=== PATIENT | female | born 1990 | race Caucasian/White ===

== ENCOUNTER 2016-04-01 07:29 | Emergency (ER) | payer MEDICAID ==
[~2016-04-01] VITALS: Ht 162.6 cm; Wt 58.0 kg
[~2016-04-01 07:29] MED LIST: CEPH-460 PO; CEPH500 PO; CLON.1 PO; CYCL-36 PO; PREN0.01 PO; SERT-132 PO
[2016-04-01 07:31] VITALS: BP 132/84; PULSE 90; RESP 16; TEMP 97.9; O2SAT 95
[2016-04-01] MEDS ORDERED: SERO100T PO (07:45)
--- NOTE | 2016-04-01 07:55 | PD ---
HPI Chief Complaint: Evaluation Assistant Problem/Complaint Time Seen by Provider: 07:51 Travel History International Travel<30 days: No Contact w/Intl Traveler<30days: No Traveled to known affect area: No History of Present Illness HPI 26-year-old female with history of miscarriage one month ago, presents to the ER with vaginal bleeding and passing blood clots for 3-4 days. She states that it is abnormal for her to do this and she does not think this is her regular period. She has been having some pelvic cramping pains. She denies any other issues. Otherwise, states that she has to go to rehabilitation for substance use, has had some withdrawal symptoms. Modifying Factors: None Associated Signs & Symptoms: Pelvic cramping, vaginal bleeding Risk Factors: None PFSH Past Medical History Autoimmune Disease: No Blood Disorders: No Bipolar Disorder: Yes Anxiety: Yes Depression: Yes Cancer: No Cardiovascular Problems: No Diabetes: No Diminished Hearing: No Gastrointestinal Disorders: Yes Genitourinary: No Musculoskeletal: No Neurologic: No Psychiatric: No Respiratory: No Immunizations Current: No Seizures: No Sickle Cell Disease: No Thyroid Disease: No Ulcer: No ?: Unknown LMP: unknown : 1 Para: 1 Past Surgical History Abdominal Surgery: Yes (1998 - APPENDECTOMY) Appendectomy: Yes Cardiac Surgery: No Ear Surgery: No Endocrine Surgery: No Eye Surgery: No Genitourinary Surgery: No Gynecologic Surgery: No Neurologic Surgery: No Oral Surgery: No Thoracic Surgery: No Other Surgery: No Social History Alcohol Use: No Tobacco Use: Yes (12ppd) Substance Use: Yes (Reports hx of cannabinoids, Dilaudid. Reports relapsed a few days ago.) Allergies-Medications (Allergen,Severity, Reaction): Coded Allergies: No Known Allergies (Verified , 04/01/16) Reported Meds & Prescriptions Reported Meds & Active Scripts Active Reported Seroquel (Quetiapine Fumarate) 100 Mg Tab 100 Mg PO BID Review of Systems Except as stated in HPI: all other systems reviewed are Neg Physical Exam Narrative GENERAL: Well-nourished, well-developed young white female patient in no acute distress. SKIN: Warm and dry. HEAD: Normocephalic. EYES: No scleral icterus. No injection or drainage. NECK: Supple, trachea midline. CARDIOVASCULAR: Regular rate and rhythm without murmurs, gallops, or rubs. RESPIRATORY: Breath sounds equal bilaterally. No accessory muscle use. GASTROINTESTINAL: Abdomen soft, non-tender, nondistended. Benign. GENITOURINARY: Normal external genitalia without lesions or erythema. Vaginal vault without blood or drainage. Cervical os was closed without drainage. No cervical motion tenderness. Uterus nontender and nonenlarged. Bilateral adnexa nontender without masses. MUSCULOSKELETAL: No cyanosis, or edema. BACK: Nontender without obvious deformity. No CVA tenderness. Data Data Last Documented VS Vital Signs Date Time Temp Pulse Resp B/P Pulse Ox O2 Delivery O2 Flow Rate FiO2 04/01/16 07:31 97.9 90 16 132/84 95 Room Air Orders Beta Hcg (Quant/Titer) (04/01/16 07:51) Complete Blood Count With Diff (04/01/16 07:51) Basic Metabolic Panel (Bmp) (04/01/16 07:51) Us Pelvis Comp W Transvaginal (04/01/16 ) Labs Laboratory Tests Test 04/01/16 08:00 White Blood Count 5.5 TH/MM3 Red Blood Count 3.68 MIL/MM3 Hemoglobin 11.2 GM/DL Hematocrit 33.4 % Mean Corpuscular Volume 90.6 FL Mean Corpuscular Hemoglobin 30.4 PG Mean Corpuscular Hemoglobin 33.5 % Concent Red Cell Distribution Width 14.2 % Platelet Count 194 TH/MM3 Mean Platelet Volume 8.9 FL Neutrophils (%) (Auto) 64.7 % Lymphocytes (%) (Auto) 25.2 % Monocytes (%) (Auto) 6.2 % Eosinophils (%) (Auto) 3.5 % Basophils (%) (Auto) 0.4 % Neutrophils # (Auto) 3.5 TH/MM3 Lymphocytes # (Auto) 1.4 TH/MM3 Monocytes # (Auto) 0.3 TH/MM3 Eosinophils # (Auto) 0.2 TH/MM3 Basophils # (Auto) 0.0 TH/MM3 CBC Comment DIFF FINAL Differential Comment Sodium Level 142 MEQ/L Potassium Level 3.7 MEQ/L Chloride Level 107 MEQ/L Carbon Dioxide Level 28.2 MEQ/L Anion Gap 7 MEQ/L Blood Urea Nitrogen 9 MG/DL Creatinine 0.83 MG/DL Estimat Glomerular Filtration 83 ML/MIN Rate Random Glucose 102 MG/DL Calcium Level 8.4 MG/DL Human Chorionic Gonadotropin, 2 MIU/ML Quant MDM Medical Decision Making Medical Screen Exam Complete: Yes Emergency Medical Condition: Yes Medical Record Reviewed: Yes Interpretation(s) Laboratory Tests Test 04/01/16 08:00 Red Blood Count 3.68 MIL/MM3 (4.00-5.30) Hemoglobin 11.2 GM/DL (11.6-15.3) Hematocrit 33.4 % (35.0-46.0) Estimat Glomerular Filtration 83 ML/MIN (>89) Rate Calcium Level 8.4 MG/DL (8.5-10.1) Last 24 hours Impressions Pelvis Ultrasound 04/01/16 0000 Signed Impressions: Service Date/Time: Friday, April 01, 2016 08:22 - CONCLUSION: Slitlike fluid in the endometrial cavity. Uterus otherwise negative. Septated or cyst within a cyst 2 cm right ovary. Complex fluid in the cul-de-sac. Tino Gómez MD Differential Diagnosis Pelvic cramping pains, vaginal bleedingdysmenorrhea versus retained products of Narrative Course HCG is negative. Pelvic exam did not reveal any signs of acute abnormalities and no significant bleeding at this time. Her ultrasound shows no signs of retained products of . At this point, my plan would be to release her with follow-up to [facility]. Return for any new issues as needed. The plan has been discussed with her and she states understanding. Diagnosis Primary Impression: DYSMENORRHEA, UNSPECIFIED Med/Other Pt SpecificInfo: Prescription(s) given Scripts Ibuprofen (Motrin Ib)200 Mg Tfn009 Mg PO Q6H PRN (PAIN SCALE 1 TO 10) #21 TAB Ref 0 Prov:Tomasz Ortiz MD 04/01/16 Disposition: 01 DISCHARGE HOME Condition: Stable Tomasz Ortiz MD Apr 01, 2016 07:55
[2016-04-01 08:29] LABS: AUTOMATED NEUTROPHIL # 3.5 TH/MM3 (1.8-7.7); BASOPHIL % 0.4 % (0.0-2.0); EOSINOPHIL # 0.2 TH/MM3 (0-0.4); EOSINOPHIL % 3.5 % (0.0-4.0); HEMATOCRIT 33.4 % (35.0-46.0); HEMO FLAGS DIFF FINAL; LYMPH % 25.2 % (9.0-44.0); LYMPHOCYTE # 1.4 TH/MM3 (1.0-4.8); MEAN CELL VOLUME 90.6 FL (80.0-100.0); MEAN CORPUSCULAR HEMOGLOBIN 30.4 PG (27.0-34.0); MEAN CORPUSCULAR HGB CONC 33.5 % (32.0-36.0); MONO % 6.2 % (0.0-8.0); NEUT % 64.7 % (16.0-70.0); PLATELET COUNT 194 TH/MM3 (150-450); RED BLOOD COUNT 3.68 MIL/MM3 (4.00-5.30); RED CELL DISTRIBUTION WIDTH 14.2 % (11.6-17.2); WHITE BLOOD COUNT 5.5 TH/MM3 (4.0-11.0)
[2016-04-01 08:47] LABS: BICARBONATE 28.2 MEQ/L (21.0-32.0); POTASSIUM 3.7 MEQ/L (3.5-5.1)
--- NOTE | 2016-04-01 10:03 | RADRPT ---
EXAM DATE/TIME: 04/01/2016 08:22 [facility] COMPARISON: US PELVIS ([facility] PREG/ECTOPIC), November 07, 2015, 9:34. INDICATIONS : Pelvic pain and vaginal bleeding following miscarriage last month. MEDICAL HISTORY : Bipolar disorder. Miscarriage 02/2016 (24 weeks). Substance use. SURGICAL HISTORY : Appendectomy. ENCOUNTER: Subsequent ACUITY: 2 weeks PAIN SCORE: 4/10 LOCATION: Right pelvis MEASUREMENTS: UTERUS: 8.1 x 3.4 x 5.9 cm ENDOMETRIAL STRIPE: 4 mm RIGHT OVARY: 3.6 x 2.0 x 1.9 cm LEFT OVARY: 3.1 x 1.3 x 2.3 cm FINDINGS: UTERUS: The myometrium has homogeneous echotexture without mass. Slitlike fluid in the endometrial cavity RIGHT OVARY: There is a septated or cyst within a cyst of the ovary measuring maximally up to 2 cm in size LEFT OVARY: Ovary contains no mass or significant cystic lesion. MISCELLANEOUS: Complex fluid in the cul-de-sac. CONCLUSION: Slitlike fluid in the endometrial cavity. Uterus otherwise negative. Septated or cyst within a cyst 2 cm right ovary. Complex fluid in the cul-de-sac. Tino Gómez MD on April 01, 2016 at 9:59 Board Certified Radiologist. This report was verified electronically.
[2016-04-01] MEDS ORDERED: MOTR200T4 PO (10:33)
[2016-04-01 10:43] VITALS: BP 148/79
== END 2016-04-01 11:02 | disposition home or self-care (01) ==
LOC: NEPC 07:29
DX: N94.6 Dysmenorrhea, unspecified (principal); F17.210 Nicotine dependence, cigarettes, uncomplicated; F12.90 Cannabis use, unspecified, uncomplicated; F11.90 Opioid use, unspecified, uncomplicated
CPT/HCPCS: 76830; 76856; 80048; 84702; 85025

== ENCOUNTER 2017-07-05 16:24 | Observation (INO) | payer MEDICAID, OTHER ==
[2017-07-05] VITALS (12 sets, daily range): BP systolic 106–124; BP diastolic 52–74; PULSE 73–84; RESP 18
[~2017-07-05] VITALS: Ht 162.6 cm; Wt 77.0 kg
[~2017-07-05 16:24] MED LIST changes: -CEPH-460 PO; -CEPH500 PO; -CLON.1 PO; -CYCL-36 PO; +MOTR200T4 PO; -PREN0.01 PO; +SERO100T PO; -SERT-132 PO
--- NOTE | 2017-07-05 17:31 | PD ---
HPI Chief Complaint Abdominal pain, Banks Nguyen contractions Date Seen: Jul 05, 2017 Time Seen: 17:27 Travel History International Travel<30 Days: No Contact w/Intl Traveler<30Days: No Known Affected Area: No History of Present Illness HPI 27-year-old who is at 27 weeks 4 days comes in complaining of mild abdominal pain and Banks Nguyen contractions since last night. Patient is at [employer] and has a history of substance abuse and admits to using Dilaudid last night but was positive for cocaine and could not be allowed back in to [employer] until she had an obstetrical evaluation. Patient has a history of an drug-related abruption at 28 weeks with her last resulting in . Patient denies vaginal bleeding and states her abdominal pain is mild in the lower abdomen, associated with occasional contractions. Patient did have coitus last night. Weeks Gestation: 27 Para: 2 : 3 History Past Medical History Medical History: Denies Significant Hx Obstetric History Obstetric History Spontaneous vaginal delivery at term Abruption with demise at 28 weeks with vaginal delivery Past Surgical History Narrative Surgical Appendectomy Family History Family History: Negative Social History Alcohol Use: No Tobacco Use: No Substance Abuse: Yes Allergies-Medications (Allergen,Severity, Reaction): Coded Allergies: No Known Allergies (Verified , 04/01/16) Home Meds Active Scripts Ibuprofen (Motrin Ib) 200 Mg Tab, 600 MG PO Q6H Y for PAIN SCALE 1 TO 10, #21 TAB 0 Refills Prov:Tomasz Ortiz MD 04/01/16 Reported Medications Quetiapine (Seroquel) 100 Mg Tab, 100 MG PO BID, #60 TAB 0 Refills 04/01/16 Review of Systems Except as stated in HPI: all other systems reviewed are Neg Physical Exam Narrative GENERAL: Well-nourished, well-developed patient. SKIN: Warm and dry. HEAD: Normocephalic and atraumatic. EYES: No scleral icterus. No injection or drainage. ENT: No nasal drainage noted. Mucous membranes pink. Airway patent. NECK: Supple, trachea midline. No JVD. CARDIOVASCULAR: Regular rate and rhythm without murmurs, gallops, or rubs. RESPIRATORY: Breath sounds equal bilaterally. No accessory muscle use. BREASTS: Bilateral exam showed no masses , no retractions, no nipple discharge. ABDOMEN/GI: Abdomen soft, non-tender, bowel sounds present, no rebound, no guarding Gravid to [-] weeks size 27 Fundal Height: [-] GENITOURINARY: External Genitalia: intact and normal in appearance BUS glands: [-] Normal Cervix: [-] Posterior Dilatation: [-] Closed Effacement: [-] Long Station: [-] High Presentation: [-] Vertex Membranes: [intact or ruptured] intact Uterine Contractions: [-] Every 5 minutes, minimally palpable FHT's: Category: [-] 1 Baseline: [-] 140 Reactive: [-] Moderate Variability: [-] Moderate Decels: [-] Absent EXTREMITIES: No cyanosis or edema. BACK: Nontender without obvious deformity. No CVA tenderness. NEUROLOGICAL: Awake and alert. Motor and sensory grossly within normal limits. Five out of 5 muscle strength in all muscle groups. Normal speech. Data Data Vital Signs Reviewed: Yes [facility] Medical Record Reviewed: Yes Plan 27-year-old at [employer] with a history of recent drug use with positive opioids and cocaine on urine tox with continued contractions despite IV hydration. Cervix is closed however patient has a history of demise with an abruption at 28 weeks along with her recent drug use gives a concern for possible compromise. Dr. Saldana who also recommends admission with continuation of her Subutex and trazodone, betamethasone, and ultrasound in the morning Diagnosis Diagnosis: Primary Impression: 27 weeks gestation of Additional Impressions: Drug abuse during Premature uterine contractions causing threatened premature labor in second trimester History of placenta abruption Neyr Blas MD Jul 05, 2017 17:31
[2017-07-05] MEDS ORDERED: LACTATED RINGER'S 1000 ML INJ 1,000 ML IV ONE (17:45)
[2017-07-05 18:12] LABS: BACTERIA, URINE MANY /hpf; BILIRUBIN, URINE NEG (NEG); BLOOD, URINE NEG (NEG); GLUCOSE,URINE NEG (NEG); KETONE, URINE NEG (NEG); MUCUS URINE FEW /lpf (OCC); NITRITE,URINE NEG (NEG); SQUAMOUS EPITHELIAL CELL URINE <1 /hpf (0-5); URINE COLOR YELLOW (YELLW/STRAW); URINE LEUKOCYTE ESTERASE LARGE (NEG); WHITE BLOOD CELL CLUMPS RARE
[2017-07-05] MEDS: LACTATED RINGER'S 1000 ML INJ 1,000 ML IV SCH ×2 (18:51→21:00)
[2017-07-05] MEDS ORDERED: BUPRENORPHINE HCL 8 MG SUBLINGUAL TAB SL SCH (19:00)
[2017-07-05] MEDS ORDERED: ACETAMINOPHEN 325 MG TAB PO PRN ×2 (19:00→21:15)
[2017-07-05] MEDS ORDERED: BETAMETHASONE SOD PHOS/ACETATE SUSP 30 MG/5 ML VIAL IM SCH (19:00)
[2017-07-05] MEDS ORDERED: SODIUM CHLORIDE 0.9% FLUSH 10 ML FLUSH IV FLUSH PRN (19:00)
[2017-07-05] MEDS ORDERED: ONDANSETRON HCL 4 MG/2 ML VIAL IV PUSH PRN ×2 (19:00→21:15)
[2017-07-05] MEDS: SODIUM CHLORIDE 0.9% FLUSH 10 ML FLUSH IV FLUSH SCH (19:06)
--- NOTE | 2017-07-05 19:37 | PD.OB.ANTE ---
Subjective Interval History Shelley is known to me; patient of [employer] and residenet at [facility]. She has a history of polysubstance use. She delivered an last year and was on leave from [facility] prior to graduation, when she conceived this current Out patient treatment was not successful and she was readmitted to [facility] after two months. Last week she ran away,johnathan after her prenaatal care visit with me. At that visit she had her boyfriend with her and seemed quite aggitated. We were rearranging her medications to address heightened axniwty. She was away 2 days and returned to [facility]. I was under the impression she returned yestserday but apparently it was not until today. She was described as actively in withdrawal and her screen at [facility] and now at hospital positive for coacine, opiote, methamphetamine, THC. It was considered to send her to detox, but only after surveillance at [place]. Her history is significant for and FDU at 28 weeks from what she believes was abrupt cessation of opiates as recommended by her doctor at that time. She is at that seam time frame and risk at this time. Objective Lab & Micro Results Test 07/05/17 17:00 Urine Color YELLOW Urine Turbidity CLEAR Urine pH 6.0 Urine Specific [place] 1.022 Urine Protein TRACE mg/dL Urine Glucose (UA) NEG mg/dL Urine Ketones NEG mg/dL Urine Occult Blood NEG Urine Nitrite NEG Urine Bilirubin NEG Urine Urobilinogen 8.0 MG/DL Urine Leukocyte Esterase LARGE Urine RBC 1 /hpf Urine WBC 73 /hpf Urine WBC Clumps RARE Urine Squamous Epithelial Cells <1 /hpf Urine Bacteria MANY /hpf Urine Mucus FEW /lpf Microscopic Urinalysis Comment CULTURE INDICATED Urine Opiates Screen POS Urine Barbiturates Screen NEG Urine Amphetamines Screen NEG Urine Benzodiazepines Screen NEG Urine Cocaine Screen POS Urine Cannabinoids Screen NEG Date/Time Source Procedure Growth Status 07/05/17 17:00 Urine Clean Catch Urine Culture Pending Received Physical Exam GENERAL: Well-nourished, well-developed patient. CARDIOVASCULAR: Regular rate and rhythm without murmurs, gallops, or rubs. RESPIRATORY: Breath sounds equal bilaterally. No accessory muscle use. ABDOMEN/GI: Abdomen soft, non-tender. Fundus: [-] GENITOURINARY: External Genitalia: intact and normal in appearance Cervix: [-] Dilatation: [-] Effacement: [-] Station: [-] Presentation: [-] Membranes: [-] Uterine Contractions: [-] FHT's: Category: [-] Baseline: [-] Reactive: [-] Variability: [-] Decels: [-] EXTREMITIES: No cyanosis or edema, non-tender, without signs of DVT. Assessment and Plan Assessment and Plan reviewing [facility] office notes, she has been on celexa 40, bupsar 10 TID, seroquesl 200 HS and her subutex generic. For now we will resume the seroquesl and celexa and use vistaril for anxiety intead of buspar. Will resume her subutex 5 TID. I will see her on Friday if she stays until then. Otherwis, will have come ot office early in the week under supervision at all times. Christie Saldana MD Jul 05, 2017 19:37
[2017-07-05] MEDS: BETAMETHASONE SOD PHOS/ACETATE SUSP 30 MG/5 ML VIAL IM SCH (20:30)
[2017-07-05] MEDS ORDERED: MAGNESIUM SULFATE 40 GM PREMIX 1,000 ML ONE (20:41)
[2017-07-05] MEDS ORDERED: traZODone HCL 100 MG TAB PO SCH (21:00)
[2017-07-05] MEDS ORDERED: QUEtiapine FUMARATE 200 MG TAB PO SCH (21:00)
[2017-07-05] MEDS ORDERED: MAGNESIUM SULFATE 40 GM PREMIX 1,000 ML IV SCH (21:00)
[2017-07-05] MEDS: ceFAZolin 1,000 MG/NS 100 ML IV SCH ×2 (21:00)
[2017-07-05] MEDS ORDERED: CALCIUM GLUCONATE 10% 1 GM/10 ML VIAL IV PUSH PRN (21:15)
[2017-07-05 21:48] LABS: AUTOMATED NEUTROPHIL # 7.5 TH/MM3 (1.8-7.7); BASOPHIL % 0.2 % (0.0-2.0); EOSINOPHIL % 0.5 % (0.0-4.0); HEMATOCRIT 28.3 % (35.0-46.0); HEMOGLOBIN 9.8 GM/DL (11.6-15.3); LYMPH % 11.1 % (9.0-44.0); MEAN CELL VOLUME 86.7 FL (80.0-100.0); MEAN CORPUSCULAR HEMOGLOBIN 30.1 PG (27.0-34.0); MEAN CORPUSCULAR HGB CONC 34.7 % (32.0-36.0); MEAN PLATELET VOLUME 6.6 FL (7.0-11.0); MONO % 5.3 % (0.0-8.0); MONOCYTE # 0.5 TH/MM3 (0-0.9); NEUT % 82.9 % (16.0-70.0); PLATELET COUNT 353 TH/MM3 (150-450); RED BLOOD COUNT 3.26 MIL/MM3 (4.00-5.30); RED CELL DISTRIBUTION WIDTH 13.1 % (11.6-17.2)
[2017-07-05 22:22] LABS: ALBUMIN 2.6 GM/DL (3.4-5.0); DIRECT BILIRUBIN ADULT 0.3 MG/DL (0.0-0.2)
[2017-07-05 22:23] LABS: INDIRECT BILIRUBIN 0.3 MG/DL (0.0-0.8); TOTAL BILIRUBIN ADULT 0.6 MG/DL (0.2-1.0); TOTAL PROTEIN 6.5 GM/DL (6.4-8.2)
[2017-07-06] VITALS (18 sets, daily range): BP systolic 106–124; BP diastolic 43–69; PULSE 67–93; RESP 16–18; TEMP 97.8–98.3
[2017-07-06] MEDS: ceFAZolin 1,000 MG/NS 100 ML IV SCH ×2 (05:00)
[2017-07-06] MEDS: LACTATED RINGER'S 1000 ML INJ 1,000 ML IV SCH ×4 (05:00→21:08)
[2017-07-06] MEDS ORDERED: INFLUENZA VIRUS VACCINE (QUADRIVALENT) 0.5 ML SYR IM ONE (09:00)
[2017-07-06] MEDS: SODIUM CHLORIDE 0.9% FLUSH 10 ML FLUSH IV FLUSH SCH ×2 (09:00→21:08)
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
[2017-07-06] MEDS: MULTIVIT/MIN/PREN/FOL AC/IRON PRENATAL TAB PO SCH (10:33)
[2017-07-06] MEDS: BUPRENORPHINE HCL 8 MG SUBLINGUAL TAB SL SCH ×2 (11:17→21:08)
[2017-07-06] MEDS: QUEtiapine FUMARATE 200 MG TAB PO SCH ×2 (11:17→21:08)
[2017-07-06] MEDS: CITALOPRAM HYDROBROMIDE 20 MG TAB PO SCH (11:17)
[2017-07-06] MEDS ORDERED: BUPRENORPHINE HCL 8 MG SUBLINGUAL TAB SL SCH (21:00)
[2017-07-06] MEDS: BETAMETHASONE SOD PHOS/ACETATE SUSP 30 MG/5 ML VIAL IM SCH (21:07)
[2017-07-07 00:04] VITALS: TEMP 98.2
[2017-07-07 05:14] VITALS: RESP 16; TEMP 98.3
[2017-07-07 08:26] VITALS: BP 109/61; PULSE 62
--- NOTE | 2017-07-07 08:28 | PD.OB.ANTE ---
Subjective Interval History Quiet 24 hours slept very well no more contractions good movement feels rested and ready to return to [facility] very remorseful and expresses lesson learned Objective Vital Signs Vital Signs Date Time Temp Pulse Resp B/P (MAP) Pulse Ox O2 Delivery O2 Flow Rate FiO2 07/07/17 05:14 98.3 16 07/07/17 00:04 98.2 07/07/17 00:02 16 07/06/17 23:53 98.2 16 07/06/17 21:00 80 115/43 (67) 07/06/17 20:25 87 111/69 (83) 07/06/17 19:52 98.3 18 07/06/17 19:36 83 118/49 (72) 07/06/17 19:04 90 109/63 (78) 07/06/17 18:39 17 07/06/17 16:00 97.8 93 113/51 (71) 07/06/17 15:23 18 07/06/17 10:00 18 07/06/17 09:01 76 124/51 (75) Lab & Micro Results Test 07/06/17 08:59 Glucose 1 Hour Challenge 216 MG/DL Date/Time Source Procedure Growth Status 07/05/17 17:00 Urine Clean Catch Urine Culture - Preliminary Gram Negative Ricci Resulted Physical Exam GENERAL: Well-nourished, well-developed patient. CARDIOVASCULAR: Regular rate and rhythm without murmurs, gallops, or rubs. RESPIRATORY: Breath sounds equal bilaterally. No accessory muscle use. ABDOMEN/GI: Abdomen soft, non-tender. Fundus: [-] GENITOURINARY: External Genitalia: intact and normal in appearance Cervix: [-] Dilatation: [-] Effacement: [-] Station: [-] Presentation: [-] Membranes: [-] Uterine Contractions: [-] FHT's: Category: [-] Baseline: [-] Reactive: [-] Variability: [-] Decels: [-] EXTREMITIES: No cyanosis or edema, non-tender, without signs of DVT. Assessment and Plan Assessment and Plan complete 48 hour assessment and Mg for neuroprotection one hour glucola and labs return to [facility] Friday07/07/17 Back to [facility] on subutex 4 bid seroquel 200 bid celexa 20 vistaril 50 every 6 prn Christie Saldana MD Jul 07, 2017 08:28
[2017-07-07 08:29] VITALS: RESP 18; TEMP 98.1
[2017-07-07] MEDS ORDERED: QUET1TAB9 PO (08:34)
[2017-07-07] MEDS ORDERED: HYDR50CA PO (08:34)
[2017-07-07] MEDS ORDERED: BUPR8SUB SL (08:34)
[2017-07-07] MEDS ORDERED: CELE20TA PO (08:34)
--- NOTE | 2017-07-07 08:34 | HHI.DCPOC ---
Discharge Care Plan Report Symptoms to Your Doctor -Temperature above 100.5 degrees -Redness, of incision or excessive or foul smelling drainage -Unusual pain or calf pain -Increased vaginal bleeding -Painful or difficulty urinating -Feelings of extreme sadness or anxiety after 2 weeks Goals to Promote Your Health * To prevent worsening of your condition and complications * To maintain your health at the optimal level Directions to Meet Your Goals Take your medications as prescribed Follow your dietary instruction Follow activity as directed Ensure plenty of rest for recovery Drink fluids for hydration Keep your appointments as scheduled Take your immunizations and boosters as scheduled If your symptoms worsen call your PCP, if no PCP go to Urgent Care Center or Emergency Room Smoking is Dangerous to Your Health. Avoid second hand smoke Call the 24-hour crisis hotline for domestic abuse at Christie Saldana MD Jul 07, 2017 08:34
[2017-07-07] MEDS: CITALOPRAM HYDROBROMIDE 20 MG TAB PO SCH (08:51)
[2017-07-07] MEDS: MULTIVIT/MIN/PREN/FOL AC/IRON PRENATAL TAB PO SCH (08:51)
[2017-07-07] MEDS: BUPRENORPHINE HCL 8 MG SUBLINGUAL TAB SL SCH (08:51)
[2017-07-07] MEDS: QUEtiapine FUMARATE 200 MG TAB PO SCH (08:51)
== END 2017-07-07 09:53 | disposition home or self-care (01) ==
LOC: HOBED 16:24 → H2EA 19:08
PROVIDERS: ADMIT Obstetrics & Gynecology; ATTEND Obstetrics & Gynecology
DX: O60.02 Preterm labor without delivery, second trimester (principal); O99.322 Drug use complicating pregnancy, second trimester; F19.10 Other psychoactive substance abuse, uncomplicated; O99.342 Other mental disorders complicating pregnancy, second trimester; F41.9 Anxiety disorder, unspecified; Z3A.27 27 weeks gestation of pregnancy
CPT/HCPCS: 59025; 76816; 80076; 80307; 81001; 82951; 85025; 86850; 86900; 86901; 87077; 87086; 87186; 96361; 96365; 96368; 96372; 96376; 99285; G0378; G0481; J0690; J0702; J3475; J7120; 96360

== ENCOUNTER 2017-08-21 17:47 | Observation (INO) | payer MEDICAID ==
[~2017-08-21] VITALS: Ht 162.6 cm; Wt 68.2 kg
[~2017-08-21 17:47] MED LIST changes: +BUPR8SUB SL; +CELE20TA PO; +HYDR50CA PO; -MOTR200T4 PO; +QUET1TAB9 PO
[2017-08-21] MEDS ORDERED: BUPRENORPHINE HCL 8 MG SUBLINGUAL TAB SL ONE (19:00)
[2017-08-21] MEDS ORDERED: PILL SPLITTER OTHER PRN (19:00)
[2017-08-21] MEDS ORDERED: SODIUM CHLOR 0.9% 1000 ML INJ 1,000 ML IV SCH (19:15)
[2017-08-21] MEDS ORDERED: BETAMETHASONE SOD PHOS/ACETATE SUSP 30 MG/5 ML VIAL IM SCH (19:15)
[2017-08-21] MEDS: cefTRIAXone INJ 500 MG in SODIUM CHLORIDE 0.9% INJ 50 ML IV SCH (20:09)
[2017-08-21 21:15] LABS: AUTOMATED NEUTROPHIL # 4.7 TH/MM3 (1.8-7.7); BASOPHIL % 0.3 % (0.0-2.0); EOSINOPHIL % 0.7 % (0.0-4.0); HEMOGLOBIN 11.8 GM/DL (11.6-15.3); LYMPH % 22.1 % (9.0-44.0); LYMPHOCYTE # 1.5 TH/MM3 (1.0-4.8); MEAN CELL VOLUME 87.3 FL (80.0-100.0); MEAN CORPUSCULAR HEMOGLOBIN 29.4 PG (27.0-34.0); MEAN CORPUSCULAR HGB CONC 33.6 % (32.0-36.0); MEAN PLATELET VOLUME 10.2 FL (7.0-11.0); MONO % 5.9 % (0.0-8.0); MONOCYTE # 0.4 TH/MM3 (0-0.9); PLATELET COUNT 185 TH/MM3 (150-450); RED BLOOD COUNT 4.01 MIL/MM3 (4.00-5.30); RED CELL DISTRIBUTION WIDTH 13.9 % (11.6-17.2); WHITE BLOOD COUNT 6.7 TH/MM3 (4.0-11.0)
[2017-08-21 21:37] LABS: ALBUMIN 2.1 GM/DL (3.4-5.0); DIRECT BILIRUBIN ADULT 0.2 MG/DL (0.0-0.2)
[2017-08-21 21:39] LABS: INDIRECT BILIRUBIN 0.2 MG/DL (0.0-0.8); TOTAL BILIRUBIN ADULT 0.4 MG/DL (0.2-1.0); TOTAL PROTEIN 5.6 GM/DL (6.4-8.2)
[2017-08-21] MEDS ORDERED: traZODone HCL 100 MG TAB PO ONE (22:00)
[2017-08-21] MEDS ORDERED: QUEtiapine FUMARATE 100 MG TAB PO ONE (22:00)
[2017-08-22] MEDS: BUPRENORPHINE HCL 8 MG SUBLINGUAL TAB SL SCH ×2 (08:09→20:08)
[2017-08-22] MEDS: cefTRIAXone INJ 500 MG in SODIUM CHLORIDE 0.9% INJ 50 ML IV SCH ×2 (08:09→20:08)
--- NOTE | 2017-08-22 12:05 | HHI.HP ---
HPI Chief Complaint 34 week IIUP with acute relapse of IV drug use and abcesses on wrists 4 week lapse in care Date Seen: Aug 22, 2017 Time Seen: 07:30 Travel History International Travel<30 Days: No Contact w/Intl Traveler<30Days: No Known Affected Area: No History of Present Illness HPI 27 yo swf with LMP 10 17 and EDC 09/2717 by 8+ weeks ultrasound currently at 34 weeks EGA. History of opioid addiction with maintenance therapy with 4 mg buprenorphine subligual BID. She was residing at [facility] after she relapsed in early until she left in early July. Since then she has been homeless--"couch surfing" and using cocaine, buprenorphine from street , THC. 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 Her boyfriend "got a court petition" to take her to detox yesterday and I was called from detox about her arrival and health status. It was noted she had infected abceses on her hands and a purulent cough She has two severely abcessed teeth and is in significant pain. She states she last used cocaine 3 days ago. She denies methamphetamine, heroin, other opiates or opioids, synthetics. She is smoking a few cigarettes daily and occasional THC. While she was at [facility], we were treating her severe depression, anxiety and PTSD. She was taking seroquel 200 mg BID, trazadone 150 hs for nightmares and insomnia. buspar 10 TID for anxiety and citalpram 40 mg. She was seen by psychiatry at last hospitalization. Goal is risk reduction for both MAT and mental health medications. It was hoped we would decrease some in third trimester. Her stress is severe: She is homeless with no job, car, childcare. She is ashamed and overwhelmed.. Her daughter Tam is with her boyfriend. She has a prior loss at 28 weeks due to placental abruption. She is still grieving that loss 18 month later. She has hepatitis C. History Past Medical History Narrative Medical Diagnosed with BPD and initially treated by PCP Alberto Rey. She admits to alcohol in the first trimester malt beverages. Allergies-Medications (Allergen,Severity, Reaction): Coded Allergies: No Known Allergies (Verified Allergy, Unknown, 08/21/17) Home Meds Active Scripts Quetiapine (Quetiapine) 200 Mg Tab, 200 MG PO BID for mood disorder for 30 Days , #60 TAB Prov:Christie Saldana MD 07/07/17 Citalopram (Celexa) 20 Mg Tab, 20 MG PO DAILY for depressopm for 30 Days, #30 TAB Prov:Christie Saldana MD 07/07/17 Hydroxyzine Pamoate (Hydroxyzine Pamoate) 50 Mg Cap, 50 MG PO Q6H Y for ANXIETY for 30 Days, #120 CAP Prov:Christie Saldana MD 07/07/17 Buprenorphine (Buprenorphine) 8 Mg Subl, 4 MG SL BID for maintenance for 30 Days , #60 TAB Prov:Christie Saldana MD 07/07/17 Reported Medications Quetiapine (Seroquel) 100 Mg Tab, 100 MG PO BID, #60 TAB 0 Refills 04/01/16 Review of Systems General / Constitutional: Fever, Chills HENT: Headaches Respiratory: Cough Gastrointestinal: Abdominal Pain, Loss of Appetite Skin: Rash, Itching Neurologic: Dizziness Psychiatric: Anxiety, Depression, Substance Abuse Hematologic/Lymphatic: Easy Bruising Physical Exam Narrative GENERAL: Well-nourished, well-developed patient. SKIN: Warm and dry.Many scars and healed boils and tracks HEAD: Normocephalic and atraumatic. EYES: No scleral icterus. No injection or drainage. ENT: No nasal drainage noted. Mucous membranes pink. Airway patent. NECK: Supple, trachea midline. No JVD. CARDIOVASCULAR: Regular rate and rhythm without murmurs, gallops, or rubs. RESPIRATORY: Breath sounds equal bilaterally. No accessory muscle use. BREASTS: Bilateral exam showed no masses , no retractions, no nipple discharge. ABDOMEN/GI: Abdomen soft, non-tender, bowel sounds present, no rebound, no guarding 34 cm strip reactive EXTREMITIES: No cyanosis or edema. abcess on both wrists BACK: Nontender without obvious deformity. No CVA tenderness. NEUROLOGICAL: Awake and alert. Motor and sensory grossly within normal limits. Five out of 5 muscle strength in all muscle groups. Normal speech. Caprini VTE Risk Assessment Caprini VTE Risk Assessment: No/Low Risk (score <= 1) Caprini Risk Assessment Model Point Value = 1 Point Value = 2 Point Value = 3 Point Value = 5 Age 41-60 Minor surgery BMI > 25 kg/m2 Swollen legs Varicose veins or History of unexplained or recurrent spontaneous Oral contraceptives or hormone replacement Sepsis (< 1 month) Serious lung disease, including pneumonia (< 1 month) Abnormal pulmonary function Acute myocardial infarction Congestive heart failure (< 1 month) History of inflammatory bowel disease Medical patient at bed rest Age 61-74 Arthroscopic surgery Major open surgery (> 45 min) Laparoscopic surgery (> 45 min) Malignancy Confined to bed (> 72 hours) Immobilizing plaster cast Central venous access Age >= 75 History of VTE Family history of VTE Factor V Leiden Prothrombin 13033G Lupus anticoagulant Anticardiolipin antibodies Elevated serum homocysteine Heparin-induced thrombocytopenia Other congenital or acquired thrombophilia Stroke (< 1 month) Elective arthroplasty Hip, pelvis, or leg fracture Acute spinal cord injury (< 1 month) Prophylaxis Regimen Total Risk Factor Score Risk Level Prophylaxis Regimen 0-1 Low Early ambulation 2 Moderate Order ONE of the following: *Sequential Compression Device (SCD) *Heparin 5000 units SQ BID 3-4 Higher Order ONE of the following medications: *Heparin 5000 units SQ TID *Enoxaparin/Lovenox 40 mg SQ daily (WT < 150 kg, CrCl > 30 mL/min) *Enoxaparin/Lovenox 30 mg SQ daily (WT < 150 kg, CrCl > 10-29 mL/min) *Enoxaparin/Lovenox 30 mg SQ BID (WT < 150 kg, CrCl > 30 mL/min) AND/OR *Sequential Compression Device (SCD) 5 or more Highest Order ONE of the following medications: *Heparin 5000 units SQ TID (Preferred with Epidurals) *Enoxaparin/Lovenox 40 mg SQ daily (WT < 150 kg, CrCl > 30 mL/min) *Enoxaparin/Lovenox 30 mg SQ daily (WT < 150 kg, CrCl > 10-29 mL/min) *Enoxaparin/Lovenox 30 mg SQ BID (WT < 150 kg, CrCl > 30 mL/min) AND *Sequential Compression Device (SCD) Data Data Orders Orders Diet Regular Basic (08/21/17 Dinner) Instruction (08/21/17 18:39) Complete Blood Count With Diff (08/21/17 18:39) Hepatic Functional Panel (08/21/17 18:39) Hepatitis Profile (08/21/17 18:39) Hiv 1 2 Ab Differentiation (08/21/17 18:39) Ob/Psych Drug Screen, Urine (08/21/17 18:39) Buprenorphine (Buprenorphine) (08/21/17 19:00) Buprenorphine (Buprenorphine) (08/22/17 08:00) Pill Splitter (Pill Splitter) (08/21/17 19:00) Betamethasone Inj (Celestone Soluspan In (08/21/17 19:15) Ceftriaxone Inj (Rocephin Inj) (08/21/17 20:00) Vascular Access Team Consult/P PRN (08/21/17 19:07) Vascular Poc Ultrasound (08/21/17 ) Quetiapine (Seroquel) (08/21/17 22:00) Trazodone (Desyrel) (08/21/17 22:00) Case Management Consult (08/22/17 ) Us Ob Bpp Wo Nst Ua/Mca Dp Rpt (08/22/17 ) Labs Laboratory Tests Test 08/21/17 19:50 White Blood Count 6.7 Red Blood Count 4.01 Hemoglobin 11.8 Hematocrit 35.0 Mean Corpuscular Volume 87.3 Mean Corpuscular Hemoglobin 29.4 Mean Corpuscular Hemoglobin Concent 33.6 Red Cell Distribution Width 13.9 Platelet Count 185 Mean Platelet Volume 10.2 Neutrophils (%) (Auto) 71.0 Lymphocytes (%) (Auto) 22.1 Monocytes (%) (Auto) 5.9 Eosinophils (%) (Auto) 0.7 Basophils (%) (Auto) 0.3 Neutrophils # (Auto) 4.7 Lymphocytes # (Auto) 1.5 Monocytes # (Auto) 0.4 Eosinophils # (Auto) 0.0 Basophils # (Auto) 0.0 CBC Comment DIFF FINAL Differential Comment Total Bilirubin 0.4 Direct Bilirubin 0.2 Indirect Bilirubin 0.2 Aspartate Amino Transf (AST/SGOT) 48 Alanine Aminotransferase (ALT/SGPT) 28 Alkaline Phosphatase 209 Total Protein 5.6 Albumin 2.1 Urine Opiates Screen NEG Urine Barbiturates Screen NEG Urine Amphetamines Screen NEG Urine Benzodiazepines Screen NEG Urine Cocaine Screen POS Urine Cannabinoids Screen POS Hepatitis A IgM Antibody NONREACTIVE Hepatitis B Surface Antigen NONREACTIVE Hepatitis B Core IgM Antibody NONREACTIVE Hepatitis C IgG Antibody REACTIVE HIV (1&2) Ab and P24 Ag, 4th Gener NONREACTIVE Assessment/Plan Assessment and Plan 34 week IUP with intermittent care active addiction while taking buprenophine--with cocaine abcesses on extremities and tooth abchess 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 no longer eligible for [facility] will need close management on outpatient when discharged in 72 hours. if no signs of sepsis Christie Saldana MD Aug 22, 2017 12:05
[2017-08-22] MEDS: QUEtiapine FUMARATE 100 MG TAB PO SCH (20:53)
[2017-08-22] MEDS: traZODone HCL 100 MG TAB PO SCH (20:54)
[2017-08-22] MEDS ORDERED: CITALOPRAM HYDROBROMIDE 40 MG TAB PO ONE (21:00)
[2017-08-22] MEDS: busPIRone HCL 10 MG TAB PO SCH (22:00)
[2017-08-23] MEDS: busPIRone HCL 10 MG TAB PO SCH ×3 (06:41→20:58)
--- NOTE | 2017-08-23 08:28 | HHI.PR ---
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 Denies any right upper quadrant pain or epigastric pain. Endorses some lower extremity swelling bilaterally, nontender. No shortness of breath. States her wrists feel much better. O: Exam: deferred FHTs: 120s, moderate variability, accelerations present no decelerations TOCO: No contractions A/P 27-year-old at 34 weeks and 1 day x 8-week ultrasound admitted for treatment of upper extremity abscesses and suspicion for sepsis. 1. IUP: Category 1 tracing - EFW (08/22/17) =1994g (14% ) AC 33%, cephalic. -GBS negative (05/17/17) -Patient received 1 dose of betamethasone on 08/21 likely believing she may be higher risk for delivery, but no subsequent dose was provided 2. Subcutaneous abscesses: Improving, continue IV Rocephin for the next 48-72 hours. No blood cultures or wound cultures obtained. 3. Hepatitis C: Diagnosed last year, no prior treatment, mildly elevated AST, recheck tomorrow along with quantitative RNA. Discussed risks of vertical transmission depending on RNA load.. 4. History of IUFD: 28 weeks secondary to abruption. Would recommend following this patient with weekly testing and growths q3-4 weeks throughout this 5. Opioid use disorder: Continue home Subutex dose 6. History of polysubstance abuse: Positive for marijuana and cocaine upon admission. Case management consulted, admitting physician is working on transitional housing after discharge. 7. Anxiety/bipolar disorder: Continue home medications. 8. Elevated blood pressure: 1 systolic of 140s, patient has no signs or symptoms of preeclampsia. We will continue to monitor blood pressures. If begins to have more repetitive elevated blood pressures will collect help labs and 24-hour urine. Andrea Ballesteros MD Aug 23, 2017 08:28
[2017-08-23] MEDS: QUEtiapine FUMARATE 100 MG TAB PO SCH ×2 (08:30→20:57)
[2017-08-23] MEDS: BUPRENORPHINE HCL 8 MG SUBLINGUAL TAB SL SCH ×2 (08:30→19:52)
[2017-08-23] MEDS: cefTRIAXone INJ 500 MG in SODIUM CHLORIDE 0.9% INJ 50 ML IV SCH ×2 (08:30→19:52)
[2017-08-23] MEDS: NICOTINE 14 MG/24 HR PATCH T-DERMAL SCH (12:23)
[2017-08-23] MEDS: traZODone HCL 100 MG TAB PO SCH (20:57)
[2017-08-23] MEDS ORDERED: REMOVE OLD NICODERM (NICOTINE) PATCH T-DERMAL SCH (21:00)
[2017-08-24] MEDS: busPIRone HCL 10 MG TAB PO SCH ×3 (06:17→22:12)
--- NOTE | 2017-08-24 07:56 | HHI.PR ---
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 O: Exam: deferred FHTs: 120s, moderate variability, accelerations present no decelerations TOCO: No contractions A/P 27-year-old at 34w2d by 8wk US admitted for treatment of upper extremity abscesses and suspicion for sepsis. 1. IUP: Category 1 tracing - EFW (08/22/17) =1994g (14% ) AC 33%, cephalic. -GBS negative (05/17/17) -Patient received 1 dose of betamethasone on 08/21 likely believing she may be higher risk for delivery, but no subsequent dose was provided 2. Subcutaneous abscesses: Improving, continue IV Rocephin for the next 24-48 hours. No blood cultures or wound cultures obtained. 3. Hepatitis C: Diagnosed last year, no prior treatment, mildly elevated AST, CBC, CMP and quantitative RNA to be collected today. Discussed risks of vertical transmission depending on RNA load.. 4. History of IUFD: 28 weeks secondary to abruption. Would recommend following this patient with weekly testing and growths q3-4 weeks throughout this 5. Opioid use disorder: Continue home Subutex dose 6. History of polysubstance abuse: Positive for marijuana and cocaine upon admission. Case management consulted, admitting physician is working on transitional housing after discharge. 7. Anxiety/bipolar disorder: Continue home medications. 8. Elevated blood pressure: 1 systolic of 140s since admission, patient has no signs or symptoms of preeclampsia. We will continue to monitor blood pressures. If begins to have more repetitive elevated blood pressures will collect HELLP labs and 24-hour urine. 9. Tobacco use: nicotine patch while in patient. Andrea Ballesteros MD Aug 24, 2017 07:56
[2017-08-24] MEDS: BUPRENORPHINE HCL 8 MG SUBLINGUAL TAB SL SCH ×2 (08:07→20:42)
[2017-08-24] MEDS: cefTRIAXone INJ 500 MG in SODIUM CHLORIDE 0.9% INJ 50 ML IV SCH ×2 (08:07→20:41)
[2017-08-24] MEDS: QUEtiapine FUMARATE 100 MG TAB PO SCH ×2 (08:07→21:00)
[2017-08-24] MEDS: NICOTINE 14 MG/24 HR PATCH T-DERMAL SCH (08:07)
[2017-08-24 13:55] LABS: BASOPHIL % 0.3 % (0.0-2.0); EOSINOPHIL # 0.1 TH/MM3 (0-0.4); EOSINOPHIL % 0.8 % (0.0-4.0); HEMATOCRIT 35.9 % (35.0-46.0); HEMOGLOBIN 12.2 GM/DL (11.6-15.3); LYMPH % 18.8 % (9.0-44.0); LYMPHOCYTE # 1.9 TH/MM3 (1.0-4.8); MEAN CORPUSCULAR HEMOGLOBIN 29.6 PG (27.0-34.0); MEAN CORPUSCULAR HGB CONC 34.1 % (32.0-36.0); MEAN PLATELET VOLUME 9.7 FL (7.0-11.0); MONO % 9.4 % (0.0-8.0); MONOCYTE # 0.9 TH/MM3 (0-0.9); NEUT % 70.7 % (16.0-70.0); PLATELET COUNT 200 TH/MM3 (150-450); RED BLOOD COUNT 4.13 MIL/MM3 (4.00-5.30); RED CELL DISTRIBUTION WIDTH 13.9 % (11.6-17.2); WHITE BLOOD COUNT 9.9 TH/MM3 (4.0-11.0)
[2017-08-24 14:16] LABS: ALBUMIN 2.1 GM/DL (3.4-5.0); AST (GOT) 52 U/L (15-37); BICARBONATE 24.4 MEQ/L (21.0-32.0); BLOOD UREA NITROGEN 6 MG/DL (7-18); CALCIUM 8.1 MG/DL (8.5-10.1); CHLORIDE 106 MEQ/L (98-107); CREATININE 0.55 MG/DL (0.50-1.00); GLOMERULAR FILTRATION RATE 133 ML/MIN (>89); GLUCOSE,RANDOM 85 MG/DL (74-106); SODIUM (NA) 139 MEQ/L (136-145)
[2017-08-24 14:18] LABS: ALKALINE PHOSPHATASE 181 U/L (45-117); ALT (GPT) 35 U/L (10-53); TOTAL BILIRUBIN ADULT 0.2 MG/DL (0.2-1.0); TOTAL PROTEIN 5.8 GM/DL (6.4-8.2)
[2017-08-24] MEDS: traZODone HCL 100 MG TAB PO SCH (21:00)
[2017-08-25] MEDS: busPIRone HCL 10 MG TAB PO SCH ×3 (07:21→21:24)
[2017-08-25] MEDS: cefTRIAXone INJ 500 MG in SODIUM CHLORIDE 0.9% INJ 50 ML IV SCH ×2 (07:21→20:12)
[2017-08-25] MEDS: BUPRENORPHINE HCL 8 MG SUBLINGUAL TAB SL SCH ×2 (07:23→20:13)
--- NOTE | 2017-08-25 08:05 | PD.OB.ANTE ---
Subjective Interval History 34 3/7 week IUP with history of recent IV cocaine use and prior loss at 28 weeks due to abruptio Infected IV sites x 2 on wrists with abcesses that need drainage surveillance reassuring to date Antepartum ROS: Denies: New complaints, Loss of fluid, Vaginal bleeding, movement normal, Contractions, Other Objective Lab & Micro Results Test 08/24/17 12:53 White Blood Count 9.9 TH/MM3 Red Blood Count 4.13 MIL/MM3 Hemoglobin 12.2 GM/DL Hematocrit 35.9 % Mean Corpuscular Volume 87.0 FL Mean Corpuscular Hemoglobin 29.6 PG Mean Corpuscular Hemoglobin Concent 34.1 % Red Cell Distribution Width 13.9 % Platelet Count 200 TH/MM3 Mean Platelet Volume 9.7 FL Neutrophils (%) (Auto) 70.7 % Lymphocytes (%) (Auto) 18.8 % Monocytes (%) (Auto) 9.4 % Eosinophils (%) (Auto) 0.8 % Basophils (%) (Auto) 0.3 % Neutrophils # (Auto) 7.0 TH/MM3 Lymphocytes # (Auto) 1.9 TH/MM3 Monocytes # (Auto) 0.9 TH/MM3 Eosinophils # (Auto) 0.1 TH/MM3 Basophils # (Auto) 0.0 TH/MM3 CBC Comment DIFF FINAL Differential Comment Blood Urea Nitrogen 6 MG/DL Creatinine 0.55 MG/DL Random Glucose 85 MG/DL Total Protein 5.8 GM/DL Albumin 2.1 GM/DL Calcium Level 8.1 MG/DL Alkaline Phosphatase 181 U/L Aspartate Amino Transf (AST/SGOT) 52 U/L Alanine Aminotransferase (ALT/SGPT) 35 U/L Total Bilirubin 0.2 MG/DL Sodium Level 139 MEQ/L Potassium Level 3.8 MEQ/L Chloride Level 106 MEQ/L Carbon Dioxide Level 24.4 MEQ/L Anion Gap 9 MEQ/L Estimat Glomerular Filtration Rate 133 ML/MIN Physical Exam GENERAL: Well-nourished, well-developed patient. CARDIOVASCULAR: Regular rate and rhythm without murmurs, gallops, or rubs. RESPIRATORY: Breath sounds equal bilaterally. No accessory muscle use. ABDOMEN/GI: Abdomen soft, non-tender. fundus consistent with dates no UCs appreciated strip reassuring now after period of decreased variability EXTREMITIES: No cyanosis or edema, non-tender, without signs of DVT. Assessment and Plan Assessment and Plan 34 week IUP with intermittent care active addiction while taking buprenophine--with cocaine abcesses on extremities and tooth abchess history of cocaine induced abruptio with loss at 28 weeks in past Bipolar Disorder vs MDD PTSD Begin rocephin 500 every 12 full labs resume 4 mg buprenorphien BID resume lower dose of trazadone obtain case management and call community service officer and DCF worker. no longer eligible for WARM will need close management on outpatient when discharged in 72 hours. if no signs of sepsis 08/25/17 Hospital day 4 34 3/7 week IUP doing well on current 4 mg buprenorphine daily citalopram, trazedone, seroquel abcesses not resolving on rocephin Will get surgery consult continue IV rocephin through today repeat labs needs to be in court tomorrow. Christie Saldana MD Aug 25, 2017 08:05
[2017-08-25] MEDS: QUEtiapine FUMARATE 100 MG TAB PO SCH ×2 (09:17→21:24)
[2017-08-25] MEDS: NICOTINE 14 MG/24 HR PATCH T-DERMAL SCH (09:17)
[2017-08-25 11:08] LABS: BASOPHIL % 0.3 % (0.0-2.0); EOSINOPHIL # 0.1 TH/MM3 (0-0.4); EOSINOPHIL % 0.9 % (0.0-4.0); HEMATOCRIT 37.6 % (35.0-46.0); HEMOGLOBIN 12.7 GM/DL (11.6-15.3); LYMPH % 23.8 % (9.0-44.0); LYMPHOCYTE # 2.1 TH/MM3 (1.0-4.8); MEAN CELL VOLUME 89.1 FL (80.0-100.0); MEAN CORPUSCULAR HEMOGLOBIN 30.1 PG (27.0-34.0); MEAN CORPUSCULAR HGB CONC 33.8 % (32.0-36.0); MEAN PLATELET VOLUME 9.5 FL (7.0-11.0); MONO % 7.6 % (0.0-8.0); MONOCYTE # 0.7 TH/MM3 (0-0.9); NEUT % 67.4 % (16.0-70.0); PLATELET COUNT 186 TH/MM3 (150-450); RED BLOOD COUNT 4.22 MIL/MM3 (4.00-5.30); RED CELL DISTRIBUTION WIDTH 14.2 % (11.6-17.2); WHITE BLOOD COUNT 8.9 TH/MM3 (4.0-11.0)
[2017-08-25 11:34] LABS: ALBUMIN 2.1 GM/DL (3.4-5.0); ALT (GPT) 34 U/L (10-53); AST (GOT) 52 U/L (15-37); C-REACTIVE PROTEIN LESS THAN 0.29 MG/DL (0.00-0.30); DIRECT BILIRUBIN ADULT 0.1 MG/DL (0.0-0.2)
[2017-08-25 11:36] LABS: ALKALINE PHOSPHATASE 184 U/L (45-117); INDIRECT BILIRUBIN 0.1 MG/DL (0.0-0.8); TOTAL BILIRUBIN ADULT 0.2 MG/DL (0.2-1.0); TOTAL PROTEIN 5.7 GM/DL (6.4-8.2)
--- NOTE | 2017-08-25 19:27 | MB ---
cc: Love Arroyo MD DATE: 08/25/2017 REQUESTING PHYSICIAN: The patient is being seen at the request of Christie Saldana REASON FOR CONSULTATION: Bilateral wrist abscesses. HISTORY OF PRESENT ILLNESS: The patient is a 27-year-old female who is 34 weeks . She has a history of IV drug abuse and has recently relapsed. The patient presented on 08/21/2017 and was admitted with 2 abscesses for intravenous antibiotics and monitoring based on her gravid status. IV antibiotics were tried, but today, they decided to get a consult. The swelling has continued. On admission though, her white count was 6.7, today it was 8.9. The shift has decreased, although the white count has somewhat increased on the average. ALLERGIES: THE PATIENT HAS NO KNOWN FOOD OR DRUG ALLERGIES. MEDICATIONS: Listed on the chart. PAST MEDICAL HISTORY: She denies any other medical problems. REVIEW OF SYSTEMS: Positive for fever, chills, headaches, cough, abdominal pain, with loss of appetite, rash, itching, dizziness, anxiety, depression, substance abuse and easily bruising. PHYSICAL EXAMINATION: GENERAL: The patient is lying comfortably in bed. HEENT: Her extraocular muscles are intact. Pupils are equal, round and reactive to light. Her mouth is clear. NECK: Supple, without masses. LUNGS: Clear. HEART: Regular rate and rhythm. EXTREMITIES: Examination of the upper extremities reveals swelling on the dorsal aspect of her right wrist, just in the area of the ulnar styloid. The area is fluctuant and measures 1.5 x 1.5 cm in greatest dimension. On the left wrist, there is an area on the radial side, which measures 1.5 x 1.5 cm greatest dimension. It is just proximal to the wrist crease and it is just to the ulnar side of the radial styloid, although it is over the second dorsal compartment. The areas surrounding these abscesses are not red or inflamed. Her range of motion is normal. IMPRESSION: The patient has 2 abscesses, one on each dorsal wrist. PLAN: Incision and drainage. The patient understands and accepts risks and complications of the surgery. Love Arroyo MD [facility]/ , 05:24 PM , 07:24 PM
--- NOTE | 2017-08-25 19:33 | MP ---
cc: Love Arroyo MD DATE OF OPERATION: 08/25/2017 PREOPERATIVE DIAGNOSES: 1. Abscess of the dorsal right wrist. 2. Absence of the dorsal left wrist. POSTOPERATIVE DIAGNOSES: 1. Abscess of the dorsal right wrist. 2. Absence of the dorsal left wrist. PROCEDURES PERFORMED: 1. Incision and drainage of the dorsal abscess of the right wrist. 2. Incision and drainage of the abscess of the dorsal left wrist. ANESTHESIA: Local. SURGEON: Love Arroyo MD INDICATIONS FOR PROCEDURE: This is a 27-year-old female with history of drug abuse, with 2 abscesses. It was noted that the patient had a third one that she drained herself. FINDINGS: At the completion of the procedure, the abscesses were completely drained. They both had thick, purulent pus. The one on the right was cultured. OPERATIVE TIME: Was approximately 20 minutes. DESCRIPTION OF PROCEDURE: The patient was treated at bedside, where the area around both of the abscesses, first on the right, then the left, were prepped with alcohol and then a field block. Approximately 2 cm proximal to the abscess was injected on the left and then on the right and then the area directly over the abscess was injected with a local anesthetic. The local anesthetic was lidocaine 2% plain and approximately 8 mL were used. Once the anesthetic had taken effect, both wrists were prepped with Betadine solution and draped in the usual sterile fashion. Under sterile technique, a #15 blade was then used to make an incision over the right wrist abscess down through the skin down to the subcutaneous tissue. The incision was approximately 1 cm in length. A clamp was used to enter the abscess cavity, go into the subcutaneous tissue and pus immediately came out, it was cultured and the loculations were broken up with a small clamp, which was gently placed into the wound, pus was expressed. The wound was then copiously irrigated with saline and flushed until the effluent was clear. It was then packed with iodoform packing. Attention was then turned to the right wrist, where a 15 blade was used to make the transverse incision over the abscess down through the skin down to the subcutaneous tissue. Using a sterile clamp, the clamp was used to enter the abscess cavity. The pus was drained. Loculations were broken up with a clamp. The wound was copiously irrigated with saline and then packed with 1/4 inch iodoform packing. Both areas were then cleansed of Betadine and blood. Povidone iodine ointment was applied. All the dry dressing using Telfa gauze and Haylie. The patient was then given back to the care of the floor staff, having tolerated the procedure well. MD MARLEE James/JUAN J , 05:29 PM , 07:31 PM
[2017-08-25] MEDS ORDERED: CITALOPRAM HYDROBROMIDE 40 MG TAB PO SCH (21:00)
[2017-08-25] MEDS: traZODone HCL 100 MG TAB PO SCH (21:24)
--- NOTE | 2017-08-26 07:43 | PD.OB.ANTE ---
Subjective Interval History 34 4/7 weeeks Quiet day and night after bilateral wrist abcesses incised and drained by Dr. Arroyo No UCs, leaking or bleeding GFM no fever, chills, N, V, SANTOS Antepartum ROS: Denies: New complaints, Loss of fluid, Vaginal bleeding, movement normal, Contractions, Other Objective Lab & Micro Results Test 08/25/17 10:54 White Blood Count 8.9 TH/MM3 Red Blood Count 4.22 MIL/MM3 Hemoglobin 12.7 GM/DL Hematocrit 37.6 % Mean Corpuscular Volume 89.1 FL Mean Corpuscular Hemoglobin 30.1 PG Mean Corpuscular Hemoglobin Concent 33.8 % Red Cell Distribution Width 14.2 % Platelet Count 186 TH/MM3 Mean Platelet Volume 9.5 FL Neutrophils (%) (Auto) 67.4 % Lymphocytes (%) (Auto) 23.8 % Monocytes (%) (Auto) 7.6 % Eosinophils (%) (Auto) 0.9 % Basophils (%) (Auto) 0.3 % Neutrophils # (Auto) 6.0 TH/MM3 Lymphocytes # (Auto) 2.1 TH/MM3 Monocytes # (Auto) 0.7 TH/MM3 Eosinophils # (Auto) 0.1 TH/MM3 Basophils # (Auto) 0.0 TH/MM3 CBC Comment DIFF FINAL Differential Comment Total Bilirubin 0.2 MG/DL Direct Bilirubin 0.1 MG/DL Indirect Bilirubin 0.1 MG/DL Aspartate Amino Transf (AST/SGOT) 52 U/L Alanine Aminotransferase (ALT/SGPT) 34 U/L Alkaline Phosphatase 184 U/L C-Reactive Protein LESS THAN 0.29 MG/DL Total Protein 5.7 GM/DL Albumin 2.1 GM/DL Date/Time Source Procedure Growth Status 08/25/17 16:45 Abscess Wrist Gram Stain Pending Received 08/25/17 16:45 Abscess Wrist Wound Culture Pending Received Physical Exam GENERAL: Well-nourished, well-developed patient. CARDIOVASCULAR: Regular rate and rhythm without murmurs, gallops, or rubs. RESPIRATORY: Breath sounds equal bilaterally. No accessory muscle use. ABDOMEN/GI: Abdomen soft, non-tender. Fundus: [-] GENITOURINARY: External Genitalia: intact and normal in appearance FH 35 vertex soft/80%/1/-2 EXTREMITIES: No cyanosis or edema, non-tender, without signs of DVT healing abcesses on arms and wrists with two recent drainage sites. 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 no longer eligible for WARM will need close management on outpatient when discharged in 72 hours. if no signs of sepsis 08/25/17 Hospital day 4 34 3/7 week IUP doing well on current 4 mg buprenorphine daily citalopram, trazedone, seroquel abcesses not resolving on rocephin Will get surgery consult continue IV rocephin through today repeat labs needs to be in court tomorrow. 08/26/17 Hospital Day 5 s/p incision and drainage of abcesses after 72 hours of rocephin did not reduce the size culture is pending surveillance has been reassuring stable on dose of subutex and current psychiatric medications Have spoken with SA and drug court staff: Shelley is under a [place] Act as of last week and needs to be returned to [facility] directly today Have spoken with Laura Hays at [facility] and they will provide transporation to get her there. Unclear what the dispostion for her will be from that point on, but will continue her care, unless she is sent to an inpatient facility outside [facility] Otherwise she will return weekly to see me--obtain her subutex script and do biophysical profiles and urine drug screens Christie Saldana MD Aug 26, 2017 07:43
[2017-08-26] MEDS: BUPRENORPHINE HCL 8 MG SUBLINGUAL TAB SL SCH (08:29)
[2017-08-26] MEDS: QUEtiapine FUMARATE 100 MG TAB PO SCH (08:29)
[2017-08-26] MEDS: cefTRIAXone INJ 500 MG in SODIUM CHLORIDE 0.9% INJ 50 ML IV SCH (08:30)
[2017-08-26] MEDS: NICOTINE 14 MG/24 HR PATCH T-DERMAL SCH (08:31)
[2017-08-26] MEDS: busPIRone HCL 10 MG TAB PO SCH (08:33)
[2017-08-26] MEDS ORDERED: POVIDONE IODINE 10% OINT 30 GM TUBE TOPICAL SCH (09:00)
[2017-08-26] MEDS ORDERED: POVIDONE IODINE 10% SOLN 118 ML BOTTLE TOP SCH (09:00)
--- NOTE | 2017-08-26 09:54 | HHI.DCPOC ---
Discharge Care Plan Report Symptoms to Your Doctor -Temperature above 100.5 degrees -Redness, of incision or excessive or foul smelling drainage -Unusual pain or calf pain -Increased vaginal bleeding -Painful or difficulty urinating -Feelings of extreme sadness or anxiety after 2 weeks Goals to Promote Your Health * To prevent worsening of your condition and complications * To maintain your health at the optimal level Directions to Meet Your Goals Take your medications as prescribed Follow your dietary instruction Follow activity as directed Ensure plenty of rest for recovery Drink fluids for hydration Keep your appointments as scheduled Take your immunizations and boosters as scheduled If your symptoms worsen call your PCP, if no PCP go to Urgent Care Center or Emergency Room Smoking is Dangerous to Your Health. Avoid second hand smoke Call the 24-hour crisis hotline for domestic abuse at Christie Saldana MD Aug 26, 2017 09:54
[2017-08-26] MEDS ORDERED: LORazepam 2 MG/ML VIAL IV ONE (10:00)
== END 2017-08-26 12:54 | disposition home or self-care (01) ==
LOC: H2EA 17:47
PROVIDERS: ADMIT Obstetrics & Gynecology; ATTEND Obstetrics & Gynecology
DX: L02.414 Cutaneous abscess of left upper limb (principal); L02.413 Cutaneous abscess of right upper limb; Z3A.34 34 weeks gestation of pregnancy; O98.413 Viral hepatitis complicating pregnancy, third trimester; O99.323 Drug use complicating pregnancy, third trimester; O99.333 Smoking (tobacco) complicating pregnancy, third trimester; O99.343 Other mental disorders complicating pregnancy, third trimester; O99.353 Diseases of the nervous system complicating pregnancy, third trimester; F12.90 Cannabis use, unspecified, uncomplicated; F14.90 Cocaine use, unspecified, uncomplicated; R05 Cough; K04.7 Periapical abscess without sinus; Z59.0 Homelessness; B95.62 Methicillin resistant Staphylococcus aureus infection as the cause of diseases classified elsewhere; R51 Headache; M79.89 Other specified soft tissue disorders; F31.9 Bipolar disorder, unspecified; B19.20 Unspecified viral hepatitis C without hepatic coma; F11.20 Opioid dependence, uncomplicated
CPT/HCPCS: 76816; 76819; 76820; 76821; 80053; 80074; 80076; 80307; 85025; 86140; 86403; 87070; 87147; 87185; 87186; 87205; 87389; 87522; 96365; 96366; 96375; 96376; G0378; G0481; J0696; J0702; J2060; G0475

== ENCOUNTER 2017-09-06 11:27 | Inpatient (IN) ==
[2017-09-06] MEDS ORDERED: Ketorolac Inj 30 MG/ML (IVP) Vial IV.PUSH ONE (12:00)
[2017-09-06] MEDS ORDERED: Phenylephrine/NS 1000 MCG/10ML Syringe IV.PUSH ONE (12:00)
[2017-09-07] MEDS ORDERED: EPIDURAL-DO NOT ADMINISTER ANTICOAGULANTS OTHER PRN
[2017-09-07] MEDS ORDERED: EPIDURAL-NO SYSTEMIC NARCOTICS OTHER PRN
[2017-09-07] MEDS ORDERED: DIPHENHYDRAMINE 50 MG PO PRN
[2017-09-07] MEDS ORDERED: Acetaminophen 325 MG Tablet PO PRN (06:20)
[2017-09-07] MEDS ORDERED: Senna/Docusate Sodium 8.6/50 MG Tablet PO PRN (06:31)
[2017-09-07] MEDS ORDERED: Naloxone Inj 0.4 MG/ML Vial IV.PUSH PRN ×2 (06:38)
[2017-09-07] MEDS ORDERED: Oxytocin 30 Units/500ml Premix 30 UNITS/500 ML BAG IV.SIG PRN (06:58)
[2017-09-07] MEDS ORDERED: Simethicone 80 MG Chew Tablet PO PRN (07:05)
--- NOTE | 2017-09-07 08:43 | P.PNOB ---
Subjective Post op day: 1 Interval history: PT tearful/emotional about baby being in [place]. She has called and was told baby was extubated and breathing on own. Still under cooling therapy. Has had arguments with FOB since delivery. He wants custody of child given her drug use. She made comment to him asking if he just wants her to disappear from children's lives. He called LD intimating that she is suicidal. Pt denies any suicidal ideations or homicidal ideations. Her pain is moderately well controlled, meds are taking "the edge off" Objective Vital Signs/I&O: Vital Signs 09/06/17 21:23 09/07/17 04:00 09/07/17 05:15 Temperature 98.4 F Pulse Rate 19 L 66 Respiratory Rate 17 18 Blood Pressure 105/65 Intake & Output 09/06/17 09/07/17 09/07/17 18:59 06:59 18:59 Weight 2.39 kg Other: Weight On Admission 2.39 kg Result Diagrams: 09/07/17 08:05 09/06/17 14:50 Objective Remarks: GENERAL: Well-nourished, well-developed patient. Tearful CARDIOVASCULAR: Regular rate and rhythm without murmurs, gallops, or rubs. RESPIRATORY: Breath sounds equal bilaterally. No accessory muscle use. ABDOMEN/GI: Abdomen soft, non-tender, bowel sounds present. Incision: dressing Clean, dry and intact. Fundus: Firm, non-tender at umbilicus. GENITOURINARY: Light to moderate bleeding. EXTREMITIES: No cyanosis or edema, non-tender, without signs of DVT. Medications and IVs: Active Medications Acetaminophen (Tylenol) 650 mg PO Q6H PRN PRN Reason: PAIN SCALE 1 TO 2 Buprenorphine HCl (Sublingual) 4 mg SL TID RUBEN Buspirone HCl (Buspar) 10 mg PO Q8HR [facility] Last Admin: 09/07/17 07:41 Dose: 10 mg Diphenhydramine HCl (Benadryl Inj) 25 mg IV.PUSH Q6H PRN PRN Reason: MILD TO MODERATE ITCHING Stop: 09/07/17 12:11 Diphenhydramine HCl (Benadryl) 50 mg PO Q5H PRN PRN Reason: MILD TO MODERATE ITCHING Stop: 09/07/17 12:11 Diphtheria/Tetanus/Acell Pertussis (Infanrix Peds Inj) 0.5 ml IM .ONCE ONE Stop: 09/07/17 16:01 Lactated Ringer's (Lr 1000 Ml Inj) 1,000 mls @ 100 mls/hr IV.CONT .Q10H [facility] Stop: 09/07/17 14:07 Oxytocin (Pitocin 30 Units/Ns 500 Ml Premix) 30 units in 500 mls @ 100 mls/hr IV.SIG UNSCH X1 PRN PRN Reason: SEE LABEL COMMENTS Stop: 09/07/17 18:14 Ketorolac Tromethamine (Toradol Inj) 60 mg IM Q6H [facility] Stop: 09/07/17 13:59 Last Admin: 09/07/17 07:41 Dose: 60 mg Measles/Mumps/Rubella Vaccine Live (M-M-R Ii Vaccine Inj) 0.5 ml SQ .ONCE ONE Stop: 09/07/17 16:01 Miscellaneous Information (Misc Nursing Information) 0 each OTHER UNSCH PRN PRN Reason: SEE DOSE INSTRUCTIONS Stop: 09/07/17 12:11 Miscellaneous Information (Mis Nursing Information) 0 each OTHER UNSCH PRN PRN Reason: SEE LABEL COMMENTS Stop: 09/07/17 12:11 Naloxone HCl (Narcan Inj) 0.4 mg IV.PUSH UNSCH PRN PRN Reason: SEE LABEL COMMENTS Stop: 09/07/17 12:11 Ondansetron HCl (Zofran Odt) 4 mg PO Q6H PRN PRN Reason: NAUSEA OR VOMITING Quetiapine Fumarate (Seroquel) 200 mg PO BID [facility] Senna/Docusate Sodium (Oralia-Colace) 2 tab PO Q12H PRN PRN Reason: CONSTIPATION Simethicone (Mylicon Chew) 80 mg PO QID PRN PRN Reason: FLATULENCE Sodium Chloride (Ns Flush) 2 ml IV.FLUSH BID RUBEN Sodium Chloride (Ns Flush) 2 ml IV.FLUSH UNSCH PRN PRN Reason: FLUSH AFTER USING IV ACCESS Trazodone HCl (Desyrel) 50 mg PO [facility] Assessment and Plan - Diagnosis (1) Bipolar 1 disorder Code(s): F31.9 - Bipolar disorder, unspecified Status: Acute (2) Polysubstance abuse Code(s): F19.10 - Other psychoactive substance abuse, uncomplicated Status: Acute (3) Status post primary low transverse section Code(s): Z98.891 - History of uterine scar from previous surgery Status: Acute - Plan 27 yo now Para 3 POD 1 for urgent CD fr NRFHT, recent cocaine use POD 1 - discussed pt with Dr. Saldana yesterday afternoon to determine pain control. Subtex was increased from 4mg bid to tid. Bipolar- home regimen continued, buspar, seroquel, trazadone - transferred to [facility] due to concerning neurologic exam. Baby appeared younger than EGA. Baby was IUGR on prior scans. Social- case management consulted. PT has violated parole. Dr Saldana states patient should return to [facility] after immediate postoperative care as she is a risk to herself, high risk of overdose if not in a controlled setting.
[2017-09-07 09:23] LABS: Baso % (Auto) 0.1 % (0.0-2.0); Eos % (Auto) 0.3 % (0.0-4.0); Hematocrit 30.7 % (35.0-46.0); Hemoglobin 10.4 gm/dL (11.6-15.3); Lymph # (Auto) 1.9 th/mm3 (1.0-4.8); Lymph % (Auto) 20.8 % (9.0-44.0); Mean Corpuscular HGB Conc 33.8 % (32.0-36.0); Mean Corpuscular Hemoglobin 29.9 pg (27.0-34.0); Mean Corpuscular Volume 88.3 fL (80.0-100.0); Mean Platelet Volume 10.9 fL (7.0-11.0); Mono # (Auto) 0.8 th/mm3 (0.0-0.9); Neut # (Auto) 6.5 th/mm3 (1.8-7.7); Neut % (Auto) 69.8 % (16.0-70.0); Platelet Count 141 th/mm3 (150-450); Red Blood Count 3.48 mil/mm3 (4.00-5.30); Red Cell Distribution Width 15.1 % (11.6-17.2); White Blood Count 9.2 th/mm3 (4.0-11.0)
[2017-09-07] MEDS: LORazepam 1 MG Tablet PO PRN ×2 (14:23→21:46)
[2017-09-07] MEDS: Ibuprofen 600 MG Tablet PO PRN (15:42)
[2017-09-07] MEDS ORDERED: Diphtheria/Tetanus/Acellular Pertusis Inj 0.5 ML Vial IM ONE (16:00)
[2017-09-07] MEDS ORDERED: Measles/Mumps/Rubella Vaccine Inj 0.5 ML Vial SQ ONE (16:00)
[2017-09-07] MEDS: traZODone 50 MG Tablet PO SCH (21:47)
[2017-09-08] MEDS: Ibuprofen 600 MG Tablet PO PRN ×3 (07:01→21:10)
--- NOTE | 2017-09-08 07:58 | P.PNOB ---
Subjective Post op day: 2 Interval history: pt responds to questions but does not open her eyes to make eye contact with me Objective Vital Signs/I&O: Vital Signs 09/07/17 08:00 09/07/17 20:15 Temperature 97.3 F L 98.2 F Pulse Rate 82 86 Respiratory Rate 16 18 Blood Pressure 115/64 112/75 Result Diagrams: 09/07/17 08:05 09/06/17 14:50 Objective Remarks: GENERAL: Well-nourished, well-developed patient. CARDIOVASCULAR: Regular rate and rhythm without murmurs, gallops, or rubs. RESPIRATORY: Breath sounds equal bilaterally. No accessory muscle use. ABDOMEN/GI: Abdomen soft, non-tender, bowel sounds present. Incision: dressing Clean, dry and intact. Fundus: Firm, non-tender at umbilicus. GENITOURINARY: Light to moderate bleeding. EXTREMITIES: No cyanosis or edema, non-tender, without signs of DVT. Medications and IVs: Active Medications Acetaminophen (Tylenol) 650 mg PO Q6H PRN PRN Reason: PAIN SCALE 1 TO 2 Buprenorphine HCl (Sublingual) 4 mg SL TID [facility] Last Admin: 09/07/17 19:25 Dose: 4 mg Buspirone HCl (Buspar) 10 mg PO Q8HR [facility] Last Admin: 09/08/17 07:01 Dose: 10 mg Lorazepam (Ativan) 1 mg PO Q6H PRN PRN Reason: SEVERE ANXIETY OR AGITATION Last Admin: 09/07/17 21:46 Dose: 1 mg Ondansetron HCl (Zofran Odt) 4 mg PO Q6H PRN PRN Reason: NAUSEA OR VOMITING Quetiapine Fumarate (Seroquel) 200 mg PO BID [facility] Last Admin: 09/07/17 21:46 Dose: 200 mg Senna/Docusate Sodium (Oralia-Colace) 2 tab PO Q12H PRN PRN Reason: CONSTIPATION Simethicone (Mylicon Chew) 80 mg PO QID PRN PRN Reason: FLATULENCE Sodium Chloride (Ns Flush) 2 ml IV.FLUSH BID [facility] Sodium Chloride (Ns Flush) 2 ml IV.FLUSH UNSCH PRN PRN Reason: FLUSH AFTER USING IV ACCESS Trazodone HCl (Desyrel) 50 mg PO HS [facility] Last Admin: 09/07/17 21:47 Dose: 50 mg Assessment and Plan - Diagnosis (1) Bipolar 1 disorder Code(s): F31.9 - Bipolar disorder, unspecified Status: Acute (2) Polysubstance abuse Code(s): F19.10 - Other psychoactive substance abuse, uncomplicated Status: Acute (3) Status post primary low transverse section Code(s): Z98.891 - History of uterine scar from previous surgery Status: Acute - Plan 27 yo now Para 3 POD 2 for urgent CD fr NRFHT, recent cocaine use POD 2 - Subtex was increased from 4mg bid to tid. Bipolar- home regimen continued, buspar, seroquel, trazadone - transferred to [facility] due to concerning neurologic exam. Baby appeared younger than EGA. Baby was IUGR on prior scans. Social- case management consulted. PT has violated parole. Dr Saldana states patient should return to senior living after immediate postoperative care as she is a risk to herself, high risk of overdose if not in a controlled setting. Discharge Planning: tomorrow - Attending Attestation pt seen by me
[2017-09-08] MEDS ORDERED: LORazepam 0.5 MG Tablet PO PRN (10:46)
[2017-09-08] MEDS: LORazepam 1 MG Tablet PO PRN (11:35)
[2017-09-08] MEDS: traZODone 50 MG Tablet PO SCH (21:13)
[2017-09-09] MEDS: Ibuprofen 600 MG Tablet PO PRN (04:28)
--- NOTE | 2017-09-09 09:06 | P.PNOB ---
Subjective Post op day: 3 Interval history: doing well, ernie po, eating well, had bm. Objective Vital Signs/I&O: Vital Signs 09/08/17 17:00 09/08/17 19:49 09/08/17 19:57 Temperature 98.3 F 97.7 F 97.7 F Pulse Rate 80 75 75 Respiratory Rate 16 17 17 Blood Pressure 118/75 124/82 124/82 09/08/17 23:44 09/09/17 07:56 Temperature 98.0 F Pulse Rate 64 Respiratory Rate 16 18 Blood Pressure 129/80 Result Diagrams: 09/07/17 08:05 09/06/17 14:50 Objective Remarks: GENERAL: Well-nourished, well-developed patient. CARDIOVASCULAR: Regular rate and rhythm without murmurs, gallops, or rubs. RESPIRATORY: Breath sounds equal bilaterally. No accessory muscle use. ABDOMEN/GI: Abdomen soft, non-tender, bowel sounds present. Incision: Clean, dry and intact. Fundus: Firm, non-tender at umbilicus. GENITOURINARY: Light to moderate bleeding. EXTREMITIES: No cyanosis or edema, non-tender, without signs of DVT. Medications and IVs: Active Medications Acetaminophen (Tylenol) 650 mg PO Q6H PRN PRN Reason: PAIN SCALE 1 TO 2 Buprenorphine HCl (Sublingual) 4 mg SL TID [facility] Last Admin: 09/08/17 21:12 Dose: 4 mg Buspirone HCl (Buspar) 10 mg PO Q8HR [facility] Last Admin: 09/09/17 06:15 Dose: 10 mg Ondansetron HCl (Zofran Odt) 4 mg PO Q6H PRN PRN Reason: NAUSEA OR VOMITING Quetiapine Fumarate (Seroquel) 200 mg PO BID [facility] Last Admin: 09/08/17 21:13 Dose: 200 mg Senna/Docusate Sodium (Oralia-Colace) 2 tab PO Q12H PRN PRN Reason: CONSTIPATION Simethicone (Mylicon Chew) 80 mg PO QID PRN PRN Reason: FLATULENCE Sodium Chloride (Ns Flush) 2 ml IV.FLUSH BID [facility] Last Admin: 09/08/17 21:10 Dose: 2 ml Sodium Chloride (Ns Flush) 2 ml IV.FLUSH UNSCH PRN PRN Reason: FLUSH AFTER USING IV ACCESS Last Admin: 09/08/17 09:21 Dose: 2 ml Trazodone HCl (Desyrel) 50 mg PO HS [facility] Last Admin: 09/08/17 21:13 Dose: 50 mg Assessment and Plan - Diagnosis (1) Bipolar 1 disorder Code(s): F31.9 - Bipolar disorder, unspecified Status: Acute (2) Polysubstance abuse Code(s): F19.10 - Other psychoactive substance abuse, uncomplicated Status: Acute (3) Status post primary low transverse section Code(s): Z98.891 - History of uterine scar from previous surgery Status: Acute - Plan 27 yo now Para 3 POD 3 for urgent CD fr NRFHT, recent cocaine use POD 3 - Subtex was increased from 4mg bid to tid. Bipolar- home regimen continued, buspar, seroquel, trazadone - transferred to [facility] due to concerning neurologic exam. Baby appeared younger than EGA. Baby was IUGR on prior scans. Social- case management consulted. PT has violated parole. nursing officer notified yesterday. No warrant out yet. Pt medically stable for discharge. Reviewed w Dr. Saldana. Will not delay medically appropriate discharge to await for arrest. She will see Dr. Saldana in 2 days in the office. Discharge Planning: tomorrow
== END 2017-09-09 12:49 | disposition home or self-care (01) ==
LOC: H2E 13:51 → H1EA 16:01
PROVIDERS: ADMIT Obstetrics & Gynecology; ATTEND Obstetrics & Gynecology